=== PATIENT | female | born 1970 | race Caucasian/White ===

== ENCOUNTER 2018-01-30 17:32 | Emergency (ER) | payer BC ==
[2018-01-30] MEDS ORDERED: valACYclovir 1,000 MG Tab ONE (17:50)
[2018-01-30] MEDS ORDERED: Acetaminophen/HYDROcodone 325-5 MG Tab ONE (17:50)
--- NOTE | 2018-01-30 17:58 | EDM.PDOC ---
ED HPI GENERAL MEDICAL PROBLEM - General Chief Complaint: General Stated Complaint: RASH Time Seen by Provider: 01/30/18 17:45 Source of Information: Reports: Patient History Limitations: Reports: No Limitations - History of Present Illness INITIAL COMMENTS - FREE TEXT/NARRATIVE: According to patient she developed sudden onset of painful rash over the left thigh which started last . pain has been burning with pain shooting into the rash from her hip. Rash has turned blistery and itchy. No fever or chills. No cough. no abdominal pain. Pt manuel not taken any medications. no other complaints. Onset Date: 01/28/18 Location: Reports: Lower Extremity, Left Quality: Reports: Burning Severity: Severe Improves with: Reports: None Worsens with: Reports: None Associated Symptoms: Reports: Rash. Denies: Confusion, Chest Pain, Cough, Diaphoresis, Fever/Chills, Headaches, Nausea/Vomiting, Seizure, Shortness of Breath, Syncope, Weakness - Related Data Allergies Allergy/AdvReac Type Severity Reaction Status Date / Time No Known Allergies Allergy Verified 03/10/15 11:51 Home Meds: Home Meds Dicyclomine HCl 1 tab PO ASDIRECTED PRN 05/10/15 [History] Past Medical History Cardiovascular History: Reports: None Respiratory History: Reports: None Other Gastrointestinal History: colitis and diverticulosis Genitourinary History: Reports: None Musculoskeletal History: Reports: Neck Pain, Chronic Other Musculoskeletal History: hx of many ganglion cysts. hx of right shoulder pain due to partial RTC tear Endocrine/Metabolic History: Reports: None Oncologic (Cancer) History: Reports: None - Past Surgical History Other HEENT Surgeries/Procedures: no hardness of hearing or eyesight concerns Other GI Surgeries/Procedures: kidney aneurisms Other Neurological Surgeries/Procedures: rare sensation changes Musculoskeletal Surgical History: Reports: Carpal Tunnel Other Musculoskeletal Surgeries/Procedures:: patient feels possibly "more in my arms" than neck ED ROS GENERAL - Review of Systems Review Of Systems: See Below Constitutional: Denies: Fever, Chills HEENT: Denies: Rhinitis, Throat Pain, Throat Swelling, Vision Change Respiratory: Denies: Shortness of Breath, Wheezing, Pleuritic Chest Pain, Cough , Sputum Cardiovascular: Denies: Chest Pain, Lightheadedness GI/Abdominal: Denies: Abdominal Pain, Nausea, Vomiting : Denies: Flank Pain, Frequency Musculoskeletal: Denies: Joint Pain, Joint Swelling, Muscle Pain, Muscle Stiffness Skin: Denies: Pruritis, Rash, Erythema Neurological: Denies: Dizziness, Headache, Numbness, Tingling, Weakness ED EXAM, GENERAL - Physical Exam Exam: See Below Exam Limited By: No Limitations General Appearance: Alert, WD/WN, No Apparent Distress Eye Exam: Bilateral Eye: EOMI, PERRL Ears: Normal External Exam Nose: Normal Inspection, Normal Mucosa, No Blood Throat/Mouth: Normal Inspection, Normal Lips, Normal Teeth, Normal Gums, Normal Oropharynx, Normal Voice, No Airway Compromise Head: Atraumatic, Normocephalic Neck: Normal Inspection, Supple, Non-Tender, Full Range of Motion Respiratory/Chest: No Respiratory Distress, Lungs Clear, Normal Breath Sounds, No Accessory Muscle Use, Chest Non-Tender Cardiovascular: Normal Peripheral Pulses, Regular Rate, Rhythm, No Edema, No Gallop, No JVD, No Murmur, No Rub Skin Exam: Warm, Intact, Other (Left thigh: ther are crops of papulovesiclar lesion over the medail aspect of the thigh. the rash spreads all the way into the medail lower thigh. very sensitive to touch. No open wounds.) Course - Vital Signs Text/Narrative:: Pt reassured that she has herpes zooster of the lumbar radicle of left thigh. Pt education given. Pt has been started on Valtrex 1 gm po tid. Also advised benadryl 50mg po tid. Vicodin po q 6 hrs PRN. avoid scratching the lesions. Calamine lotion on the rash. followup in clinic on thursday for recheck. Departure - Departure Time of Disposition: 18:15 Disposition: Home, Self-Care 01 Condition: Fair Clinical Impression: Herpes dermatitis - Discharge Information - Problem List & Annotations (1) Herpes dermatitis SNOMED Code(s): 65649825, 017640365 Code(s): B00.89 - OTHER HERPESVIRAL INFECTION Status: Acute - Problem List Review Problem List Initiated/Reviewed/Updated: Yes - Assessment/Plan Assessment:: Herpes zooster Plan: Pt reassured that she has herpes zooster of the lumbar radicle of left thigh. Pt education given. Pt has been started on Valtrex 1 gm po tid. Also advised benadryl 50mg po tid. Vicodin po q 6 hrs PRN. avoid scratching the lesions. Calamine lotion on the rash. followup in clinic on thursday for recheck.
[2018-01-30 18:21] VITALS: BP 140/98
== END 2018-01-30 18:15 | disposition home or self-care (01) ==
LOC: LB.ED 17:32
DX: B02.9 Zoster without complications (principal)
CPT/HCPCS: 99282; A9270

== ENCOUNTER 2023-06-13 13:25 | Emergency (ER) | payer BC ==
[2023-06-13 14:49] LABS: BASOPHILS ABSOLUTE AUTO 0.04 K/uL (0.02-0.10); BASOPHILS PERCENT AUTO 0.4 % (0.0-0.5); EOSINOPHILS ABSOLUTE AUTO 0.13 K/uL (0.04-0.40); EOSINOPHILS PERCENT AUTO 1.3 % (1.0-5.0); HEMATOCRIT 44.7 % (37.0-47.0); HEMOGLOBIN 14.7 g/dL (11.5-16.5); LYMPHOCYTES ABSOLUTE AUTO 3.03 K/uL (1.50-4.00); LYMPHOCYTES PERCENT AUTO 29.3 % (20.0-40.0); MEAN CORPUSCULAR HEMOGLOBIN 29.4 pg (27.0-32.0); MEAN CORPUSCULAR HGB CONC 32.9 g/dL (31.0-35.0); MEAN CORPUSCULAR VOLUME 89 fL (76-96); MEAN PLATELET VOLUME 10.3 fL (6.0-10.0); MONOCYTES ABSOLUTE AUTO 0.76 K/uL (0.20-0.80); MONOCYTES PERCENT AUTO 7.4 % (3.0-10.0); NEUTROPHILS ABSOLUTE AUTO 6.38 K/uL (2.00-7.50); NEUTROPHILS PERCENT AUTO 61.6 % (45.0-70.0); PLATELET COUNT,PLT 255 K/uL (150-500); RED CELL DISTRIBUTION WIDTH 14.7 % (11.0-16.0); WHITE BLOOD CELL COUNT,WBC 10.3 K/uL (4.0-11.0)
[2023-06-13 14:52] LABS: APPEARANCE,URINE CLEAR (CLEAR); BILIRUBIN,URINE NEGATIVE (NEGATIVE); COLOR,URINE YELLOW; GLUCOSE,URINE NEGATIVE (NEGATIVE); KETONES,URINE NEGATIVE (NEGATIVE); LEUKOCYTE ESTERASE,URINE TRACE (NEGATIVE); NITRITE,URINE NEGATIVE (NEGATIVE); OCCULT BLOOD,URINE NEGATIVE (NEGATIVE); PROTEIN,URINE NEGATIVE (NEGATIVE); UROBILINOGEN,URINE 0.2 E.U./dL (0.2-1.0)
[2023-06-13 14:57] LABS: RBC,URINE 0-5 /HPF; SQUAMOUS EPITHELIAL CELLS,UR FEW /HPF; WBC,URINE 0-5 /HPF
[2023-06-13 15:10] LABS: A/G RATIO 1.1 (0.8-2.0); ALBUMIN 3.8 g/dL (3.4-5.0); ANION GAP 8.7 mmol/L (5.0-15.0); BILIRUBIN TOTAL 0.3 mg/dL (0.0-1.0); BUN/CREATININE RATIO 13.5 (6-25); CALCIUM 9.1 mg/dL (8.5-10.1); CARBON DIOXIDE,CO2 29.8 mmol/L (21.0-32.0); CREATININE 0.89 mg/dL (0.55-1.02); EST CRCL DRUG DOSING (CG) 62.4 mL/min; POTASSIUM,K 4.5 mmol/L (3.5-5.1); PROTEIN TOTAL,TP 7.3 g/dL (6.4-8.2)
[2023-06-13] MEDS ORDERED: Diatrizoate Meglumine/Diatrizoate Sodium 37% 30 ML Bottle PO ONE (15:15)
[2023-06-13] MEDS ORDERED: Diatrizoate Meglumine/Diatrizoate Sodium 37% 30 ML Bottle PO SCH (15:30)
[2023-06-13 18:50] VITALS: BP 140/95; PULSE 85
== END 2023-06-13 17:21 | disposition home or self-care (01) ==
LOC: LB.ED 13:25
DX: R10.31 Right lower quadrant pain (principal); R10.32 Left lower quadrant pain; F17.210 Nicotine dependence, cigarettes, uncomplicated; Z79.899 Other long term (current) drug therapy
CPT/HCPCS: 36415; 74176; 80053; 81001; 85025; 86140; 99284; Q9963

== ENCOUNTER 2023-06-26 19:32 | Emergency (ER) | payer BC, MEDICARE ==
[2023-06-26] MEDS: GI Cocktail Oral Solution 30 ML PO ONE (19:55)
[2023-06-26 20:11] LABS: BASOPHILS ABSOLUTE AUTO 0.05 K/uL (0.02-0.10); BASOPHILS PERCENT AUTO 0.4 % (0.0-0.5); EOSINOPHILS ABSOLUTE AUTO 0.13 K/uL (0.04-0.40); EOSINOPHILS PERCENT AUTO 1.1 % (1.0-5.0); HEMATOCRIT 42.4 % (37.0-47.0); HEMOGLOBIN 13.7 g/dL (11.5-16.5); LYMPHOCYTES ABSOLUTE AUTO 3.32 K/uL (1.50-4.00); LYMPHOCYTES PERCENT AUTO 27.6 % (20.0-40.0); MEAN CORPUSCULAR HEMOGLOBIN 29.1 pg (27.0-32.0); MEAN CORPUSCULAR HGB CONC 32.3 g/dL (31.0-35.0); MEAN CORPUSCULAR VOLUME 90 fL (76-96); MEAN PLATELET VOLUME 10.6 fL (6.0-10.0); MONOCYTES ABSOLUTE AUTO 0.96 K/uL (0.20-0.80); NEUTROPHILS ABSOLUTE AUTO 7.55 K/uL (2.00-7.50); NEUTROPHILS PERCENT AUTO 62.9 % (45.0-70.0); PLATELET COUNT,PLT 274 K/uL (150-500); RED CELL DISTRIBUTION WIDTH 14.3 % (11.0-16.0)
[2023-06-26 20:27] LABS: APPEARANCE,URINE CLEAR (CLEAR); BILIRUBIN,URINE NEGATIVE (NEGATIVE); COLOR,URINE YELLOW; GLUCOSE,URINE NEGATIVE (NEGATIVE); KETONES,URINE NEGATIVE (NEGATIVE); LEUKOCYTE ESTERASE,URINE NEGATIVE (NEGATIVE); NITRITE,URINE NEGATIVE (NEGATIVE); OCCULT BLOOD,URINE NEGATIVE (NEGATIVE); PROTEIN,URINE NEGATIVE (NEGATIVE); UROBILINOGEN,URINE 0.2 E.U./dL (0.2-1.0)
[2023-06-26 20:29] LABS: ALANINE AMINOTRANSFERASE,ALT 90 U/L (12-78); ALBUMIN 3.7 g/dL (3.4-5.0); ALKALINE PHOSPHATASE 89 U/L (46-116); ANION GAP 12.3 mmol/L (5.0-15.0); ASPARTATE AMNIOTRANSFERASE,AST 43 U/L (15-37); BILIRUBIN TOTAL 0.5 mg/dL (0.0-1.0); BLOOD UREA NITROGEN,BUN 14 mg/dL (8-26); CARBON DIOXIDE,CO2 31.8 mmol/L (21.0-32.0); CHLORIDE,CL 102 mmol/L (98-107); CREATININE 1.17 mg/dL (0.55-1.02); ESTIMATED GFR 55 mL/min (>60); GLUCOSE RANDOM 126 mg/dL (74-100); LIPASE 40 U/L (16-77); MAGNESIUM 2.3 mg/dL (1.8-2.4); POTASSIUM,K 4.1 mmol/L (3.5-5.1); PROTEIN TOTAL,TP 7.3 g/dL (6.4-8.2); SODIUM,NA 142 mmol/L (136-145)
[2023-06-26] MEDS: Famotidine 20 MG Tab PO ONE (21:19)
[2023-06-26] MEDS: Acetaminophen 500 MG Tab PO ONE (21:19)
[2023-06-26] MEDS: Acetaminophen 500 MG Tab ONE (21:32)
[2023-06-26 22:08] VITALS: BP 120/86; PULSE 96
== END 2023-06-26 21:35 | disposition home or self-care (01) ==
LOC: LB.ED 19:32
DX: R10.84 Generalized abdominal pain (principal); R94.4 Abnormal results of kidney function studies; R74.8 Abnormal levels of other serum enzymes; Z88.5 Allergy status to narcotic agent
CPT/HCPCS: 36415; 80053; 81003; 83690; 83735; 85025; 99283; 99284; A9270-GY

== ENCOUNTER 2023-08-13 10:42 | Day surgery (SDC) | payer BC, MEDICARE ==
[~2023-08-13 10:42] MED LIST: Metoclopramide 10 MG/2 ML SDV IV PRN; Sodium Chloride 0.9% 1,000 ML IV SCH
[2023-08-13] MEDS ORDERED: Propofol 1,000 MG/100 ML SDV ONE (12:15)
[2023-08-13 12:38] VITALS: BP 147/96; PULSE 95
== END 2023-08-13 13:50 | disposition home or self-care (01) ==
LOC: LB.SDS 10:42
PROVIDERS: ATTEND Surgery
DX: D12.5 Benign neoplasm of sigmoid colon (principal); K57.30 Diverticulosis of large intestine without perforation or abscess without bleeding; K21.9 Gastro-esophageal reflux disease without esophagitis; F17.210 Nicotine dependence, cigarettes, uncomplicated; Z79.899 Other long term (current) drug therapy
CPT/HCPCS: 88305; J2704; J7030

== ENCOUNTER 2023-12-25 15:08 | Emergency (ER) | payer BC, MEDICARE ==
[2023-12-25] MEDS: Ibuprofen 600 MG Tab PO ONE (16:22)
[2023-12-25 16:32] LABS: BASOPHILS ABSOLUTE AUTO 0.06 K/uL (0.02-0.10); BASOPHILS PERCENT AUTO 0.6 % (0.0-0.5); EOSINOPHILS ABSOLUTE AUTO 0.08 K/uL (0.04-0.40); EOSINOPHILS PERCENT AUTO 0.7 % (1.0-5.0); HEMATOCRIT 46.7 % (37.0-47.0); HEMOGLOBIN 15.3 g/dL (11.5-16.5); LYMPHOCYTES ABSOLUTE AUTO 3.17 K/uL (1.50-4.00); LYMPHOCYTES PERCENT AUTO 29.1 % (20.0-40.0); MEAN CORPUSCULAR HEMOGLOBIN 29.1 pg (27.0-32.0); MEAN CORPUSCULAR HGB CONC 32.8 g/dL (31.0-35.0); MEAN CORPUSCULAR VOLUME 89 fL (76-96); MEAN PLATELET VOLUME 10.8 fL (6.0-10.0); MONOCYTES ABSOLUTE AUTO 0.67 K/uL (0.20-0.80); MONOCYTES PERCENT AUTO 6.2 % (3.0-10.0); NEUTROPHILS PERCENT AUTO 63.4 % (45.0-70.0); PLATELET COUNT,PLT 229 K/uL (150-500); RED BLOOD CELL COUNT 5.26 M/uL (3.80-5.80); RED CELL DISTRIBUTION WIDTH 13.7 % (11.0-16.0); WHITE BLOOD CELL COUNT,WBC 10.9 K/uL (4.0-11.0)
[2023-12-25 16:45] LABS: A/G RATIO 1.1 (0.8-2.0); ANION GAP 16.2 mmol/L (5.0-15.0); BILIRUBIN TOTAL 0.5 mg/dL (0.0-1.0); CALCIUM 8.8 mg/dL (8.5-10.1); CARBON DIOXIDE,CO2 27.9 mmol/L (21.0-32.0); CREATININE 0.94 mg/dL (0.55-1.02); EST CRCL DRUG DOSING (CG) 59.08 mL/min; POTASSIUM,K 4.1 mmol/L (3.5-5.1); PROTEIN TOTAL,TP 7.7 g/dL (6.4-8.2)
[2023-12-25 17:26] VITALS: BP 139/83; PULSE 79
== END 2023-12-25 17:15 | disposition home or self-care (01) ==
LOC: LB.ED 15:08
DX: M79.651 Pain in right thigh (principal); F17.210 Nicotine dependence, cigarettes, uncomplicated; Z88.5 Allergy status to narcotic agent
CPT/HCPCS: 36415; 80053; 85025; 85379; 93005; 93010; 99283; A9270